=== PATIENT | female | born 1985 | race American Indian/Alaskan Native ===

== ENCOUNTER 2022-09-21 13:36 | Emergency (ER) | payer OTHER, SELFPAY ==
--- NOTE | ~2022-09-21 | XR_ITS ---
EXAMINATION: XR chest 2V DATE: 09/21/2022 14:45 INDICATION: Shortness of breath, chronic cough and wheezing TECHNIQUE: PA and lateral views of the chest were obtained. COMPARISON: None FINDINGS: The lungs are clear with no focal airspace opacities, pulmonary edema, pleural effusion or pneumothor ax. The cardiomediastinal silhouette is normal. Visualized bones and soft tissues are unremarkable. IMPRESSION: 1. No acute cardiopulmonary disease. Reviewed, dictated and finalized at location A. D [employer]
[2022-09-21 14:18] VITALS: BP 144/82; PULSE 72; RESP 20; TEMP 36.8; O2SAT 100
[2022-09-21 14:21] VITALS: BP 144/82; PULSE 72; RESP 20; TEMP 36.8; O2SAT 100
--- NOTE | 2022-09-21 14:23 | ED.URI ---
HPI - URI/Sore Throat General Chief Complaint: Upper Respiratory Infection Stated Complaint: Chest Congestion/Cough Time Seen by Provider: 09/21/22 14:20 Source: patient Mode of arrival: ambulatory Limitations: no limitations History of Present Illness HPI Narrative: Ms. Adames is a 36-year-old female patient presenting to the clinic today with complaints of cough and congestion. She reports she has been sick off and on for the past month. States that she has had COVID and RSV. She denies any fever or chills but does feel short of breath and congestion. MD elicited complaint: sore throat and nasal congestion Related Data Home Medications Medication Instructions Recorded Confirmed albuterol sulfate 90 mcg/actuation 2 puff inhalation Q4-6H PRN 09/21/22 09/21/22 aerosol inhaler Shortness Of Breath amlodipine 10 mg tablet 10 mg PO DAILY 09/21/22 09/21/22 benzonatate 100 mg capsule 100 mg PO Q8H PRN Cough 09/21/22 09/21/22 chlorthalidone 50 mg tablet 50 mg PO DAILY 09/21/22 09/21/22 meclizine 12.5 mg tablet 12.5 mg PO BID PRN Dizziness 09/21/22 09/21/22 Allergies Allergy/AdvReac Type Severity Reaction Status Date / Time guaifenesin Allergy Unknown Unknown Verified 09/21/22 14:19 Review of Systems Review of Systems: Pertinent positives per HPI. Patient denies any fever, chills, rash, headache, visual changes, dizziness, chest pain, palpitations, nausea, vomiting, diarrhea, constipation, abdominal pain, or any urinary issues. PMFSH Comments At the time of my signature, I reviewed and agree with the nursing past medical, surgical, social, and family history. There is no relevant family history pertinent to the patient complaint. Exam Narrative: General: Well-developed, Ob, in no apparent distress Head: Normocephalic, atraumatic Eyes: Pupils equally round and reactive to light bilaterally, EOM intact, sclera and conjunctive clear, no discharge, lids normal Ears: TMs intact and clear, ear canals clear, no drainage, grossly hearing normal. Nose: Nares patent, clear nasal discharge, no inflammation, no sinus tenderness. Mouth: Oral pharynx without lesions or masses, good dentition, MMM. Neck: Supple, trachea midline, no enlargement of anterior or posterior cervical nodes, no thyroid masses or goiter palpable. Cardio: Regular rate and rhythm, s1 and s2 normal, no murmur appreciated. Resp: rhonchi and wheezing throughout lung godfrye, no rubs or rubs Course Course Emergency Course: Portions of this record may have been created with voice recognition software. Level of Care: Express Care Visit Vital Signs Vital signs: Vital Signs Temperature 36.8 C 09/21/22 14:18 Pulse Rate 72 09/21/22 14:18 Respiratory Rate 20 09/21/22 14:18 Blood Pressure 144/82 H 09/21/22 14:18 Pulse Oximetry 100 09/21/22 14:18 Oxygen Delivery Room Air 09/21/22 14:18 Temperature 36.8 C 09/21/22 14:21 Pulse Rate 72 09/21/22 14:21 Respiratory Rate 20 09/21/22 14:21 Blood Pressure 144/82 H 09/21/22 14:21 Pulse Oximetry 100 09/21/22 14:21 Oxygen Delivery Room Air 09/21/22 14:21 Vital signs reviewed MDM - URI/Sore Throat MDM Narrative Medical decision making narrative: at the time of visit patient is resting comfortably on the exam table. Chest x-ray was negative in the clinic today. I suspect the patient has bronchitis. Supportive measures were discussed with the patient she voiced understanding of discharge instructions. Prescription for azithromycin and prednisone was sent to the pharmacy. Differential Diagnosis Differential diagnosis: Likely upper respiratory infection, otitis media, sinusitis, viral infection, bronchitis, influenza, pharyngitis and other ( COVID) Discharge Plan Discharge Clinical Impression: Bronchitis Patient Disposition: Home, Self-Care Condition: Stable Instructions: Antibiotic Form, Acute Bronchitis (ED) Additional Instructions: chest x-ray was n
== END 2022-09-21 15:30 | disposition home or self-care (01) ==
PROVIDERS: Emergency Provider Nurse Practitioner Family
DX: J40 Bronchitis, not specified as acute or chronic (principal)
CPT/HCPCS: 71046; 99213; G0463